=== PATIENT | male | born 1975 | race Caucasian/White ===

== ENCOUNTER 2022-04-17 08:03 | Outpatient (CLI) | payer OTHER, SELFPAY ==
[2022-04-17 08:46] LABS: Hematocrit 48.2 % (37.0-53.0); Hemoglobin* 16.3 gm/dL (13.5-17.5); Mean Corpuscular HGB Conc 34 gm/dL (32-36); Mean Corpuscular Hemoglobin 31 pg (26-34); Mean Corpuscular Volume 92 fL (80-100); Platelet Count* 193 K/uL (140-440); Red Blood Count 5.26 m/uL (4.30-5.90); White Blood Count* 7.36 K/uL (4.50-11.00)
[2022-04-17 08:48] LABS: Slide Review Reflex No
[2022-04-17 13:46] LABS: Chloride* 101 mmol/L (96-114)
[2022-04-17 13:47] LABS: Albumin* 4.6 g/dL (3.3-5.0); Sodium* 140 mmol/L (135-149)
[2022-04-17 13:48] LABS: Potassium* 4.6 mmol/L (3.6-5.1)
[2022-04-17 13:50] LABS: Alanine Aminotransferase* 376 U/L (4-50); Alkaline Phosphatase* 136 U/L (40-150); Aspartate Amino Transferase* 297 U/L (12-35); Bilirubin Total* 0.6 mg/dL (0.1-1.5); Blood Urea Nitrogen* 9 mg/dL (5-24); Carbon Dioxide* 27 mmol/L (20-32); Cholesterol* 321 mg/dL (90-199); Creatinine* 0.8 mg/dL (0.5-1.5); Estimated Glomerular Filt Rate 111 ml/min; Glucose* 115 mg/dL (60-115); Total Protein* 8.3 g/dL (6.0-8.3); Triglycerides* 208 mg/dL (40-149)
[2022-04-17 13:51] LABS: Calcium* 9.8 mg/dL (8.4-10.6); HDL Cholesterol* 33 mg/dL (>=40); LDL Cholesterol Calculated 246 mg/dL (<100)
== END 2022-04-17 08:04 | disposition home or self-care (01) ==
PROVIDERS: PCP Family Medicine; Visit Provider Family Medicine
DX: Z00.00 Encounter for general adult medical examination without abnormal findings (principal); I10 Essential (primary) hypertension; E78.5 Hyperlipidemia, unspecified; F41.9 Anxiety disorder, unspecified
CPT/HCPCS: 80053; 80061; 84443; 85027

== ENCOUNTER 2023-04-22 11:48 | Outpatient (CLI) | payer OTHER, SELFPAY | END 2023-04-22 11:49 | disposition home or self-care (01) | PROVIDERS: PCP Family Medicine; Visit Provider Family Medicine | DX: Z00.00 Encounter for general adult medical examination without abnormal findings (principal); R74.8 Abnormal levels of other serum enzymes; I10 Essential (primary) hypertension; E78.5 Hyperlipidemia, unspecified; F10.10 Alcohol abuse, uncomplicated | CPT/HCPCS: 80053; 82607; 82747; 83735; 84425 ==

== ENCOUNTER 2024-11-19 13:02 | Outpatient (CLI) | payer OTHER, SELFPAY | END 2024-11-19 13:03 | disposition home or self-care (01) | PROVIDERS: PCP Family Medicine; Visit Provider Family Medicine | DX: D64.9 Anemia, unspecified (principal); I10 Essential (primary) hypertension; E78.5 Hyperlipidemia, unspecified; R74.8 Abnormal levels of other serum enzymes; F10.10 Alcohol abuse, uncomplicated; Z11.59 Encounter for screening for other viral diseases; Z12.5 Encounter for screening for malignant neoplasm of prostate | CPT/HCPCS: 80053; 80061; 82043; 82570; 82746; 84425; 86803; G0103 ==